=== PATIENT | male | born 1985 | race African-American/Black ===

== ENCOUNTER → 2024-10-14 | Day surgery (SDC) | payer MEDICAID ==
[2024-10-13 10:10] LABS: Basophils # (auto) 0 10 ^3/uL (0-0.2); Basophils % (auto) 0.9 % (0.0-2.0); Eosinophils # (auto) 0.3 10 ^3/uL (0-0.8); Eosinophils % (auto) 7.4 % (0.0-7.0); Hematocrit 44.3 % (41.0-53.0); Lymphocytes # (auto) 0.9 10 ^3/uL (0.4-5.4); Lymphocytes % (auto) 26.6 % (10.0-50.0); Mean Corpuscular Hemoglobin 24.3 pg (28.0-32.0); Mean Corpuscular Hgb Conc. 31.6 g/dL (32.0-36.0); Mean Corpuscular Volume 76.7 fL (80.0-100.0); Monocytes # (auto) 0.5 10 ^3/uL (0-1.3); Monocytes % (auto) 15.3 % (0.0-12.0); Neutrophils # (auto) 1.7 10 ^3/uL (1.6-8.6); Neutrophils % (auto) 49.8 % (37.0-80.0); Nucleated Red Blood Cells % 0.4 %; Platelet Count (auto) 317 10^3/uL (140-450); Red Blood Cells 5.78 10^6/uL (4.5-5.90); Red Cell Distribution Width 15.5 % (11.8-14.3); White Blood Cell 3.4 10^3/uL (4.4-10.8)
[2024-10-13 10:12] LABS: Alkaline Phosphatase 65 U/L (46-116); Anion Gap 8 (5-15); Aspartate Aminotransferase 32 U/L (13-40); BUN/Creatinine Ratio 11.1 (10.0-20.0); Bilirubin, Total 0.5 mg/dL (0.2-1.0); Blood Urea Nitrogen 14 mg/dL (9-23); Calcium 10.3 mg/dL (8.7-10.4); Carbon Dioxide 30 mmol/L (20-31); Chloride 102 mmol/L (98-107); Potassium 4.2 mmol/L (3.5-5.1); Sodium 140 mmol/L (136-145)
[2024-10-13 10:13] LABS: Alanine Aminotransferase 47 U/L (7-40); Glucose 123 mg/dL (74-106); Total Protein 8.6 g/dL (5.7-8.2)
[2024-10-13 10:18] LABS: INR 1.02 (0.9-1.15); Partial Thromboplastin Time 27.3 SEC (24.5-34.5); Prothrombin Time 10.8 sec (9.3-11.8)
[~2024-10-14] VITALS: Ht 185.4 cm; Wt 108.9 kg
[~2024-10-14] MED LIST: ALBUAER3 IN; ASCO500T11 PO; FER325T PO; MIDAZOLAM HCL 2MG/2ML 2ml VIAL (1mg/ml) ONE
[2024-10-14] MEDS: fentaNYL CITRATE 100 MCG/2 ML VL ONE (12:42)
[2024-10-14] MEDS: MIDAZOLAM HCL 2MG/2ML 2ml VIAL (1mg/ml) ONE (12:42)
[2024-10-14] MEDS: MIDAZOLAM HCL 2MG/2ML 2ml VIAL (1mg/ml) IV ONE (12:53)
--- NOTE | 2024-10-14 13:05 | DVHNC2 ---
Procedure - PROCEDURE DATE: OCTOBER 14, 2024 PROCEDURE PERFORMED BY: Shahid Jesus MD REFERRING PROVIDER: Dr Becerril PROCEDURE PERFORMED: 1. ESOPHAGOGASTRODUODENOSCOPY WITH MODERATE SEDATION 2. ESOPHAGOGASTRODUODENOSCOPY WITH BIOPSY 3. COLONOSCOPY WITH MODERATE SEDATION 4. COLONOSCOPY WITH COLD BIOPSY POLYPECTOMY PRE-PROCEDURE DIAGNOSIS: 1. IRON-DEFICIENCY ANEMIA POSTPROCEDURE DIAGNOSIS: 1. NORMAL DUODENUM BIOPSIES TAKEN WITH COLD BIOPSY FORCEPS 2. MILD GASTRITIS, BIOPSIES TAKEN OF THE BODY AND ANTRUM 3. 2 CM HIATAL HERNIA 4. MILD EROSIVE ESOPHAGITIS LA GRADE A 5. SMALL INTERNAL AND EXTERNAL HEMORRHOIDS INDICATIONS FOR PROCEDURE: The patient is a 38-year-old male presents for outpatient endoscopy and colonoscopy for iron-deficiency anemia MEDICATIONS USED: 8mg of Versed IV and 100mcg of fentanyl IV were given in incremental doses DETAILS OF THE PROCEDURE: Informed consent was obtained after risks, benefits, and alternatives, were discussed at length with the patient. The patient gave consent to the procedure as well as some medication used for sedation. The patient was placed in the left lateral decubitus position. Endoscope was inserted into the oropharynx appearance into the esophagus, then into the stomach, then into the duodenal bulb and duodenum. The duodenal bulb and duodenum were normal. Biopsies were taken given iron-deficiency anemia. The scope was withdrawn. The stomach showed mild gastritis of the antrum biopsies were taken of the antrum and body. Retroflexion showed a small hernia. The scope was then withdrawn. The Z-line was at 40 cm patient had mild erosive esophagitis. The patient tolerated the procedure well. The patient remained in the left lateral decubitus position and a digital rectal exam was performed. The digital rectal exam showed internal hemorrhoids and external hemorrhoids. An Olympus variable torsion pediatric colonoscope was inserted into the rectum and independence to the cecum. The cecum was identified by the ileocecal valve appendiceal orifice. The scope was then withdrawn. Fleming bowel prep score of 5 was noted. There were no large polyps, masses, strictures, or arteriovenous malformations seen. More than 6 minutes withdrawal time was noted. Retroflexion showed internal hemorrhoids. The patient tolerated the procedure well. START TIME: 1253 CECUM TIME: 1254 END TIME: 1301 IMPRESSION: 1. Internal and external hemorrhoids 2. Mild erosive esophagitis and mild erosive gastritis 3. Fair colon preparation Anemia likely secondary to erosive esophagitis. Consider possible bleeding from hemorrhoids versus other GI versus non GI sources RECOMMENDATION: 1. Anti-reflux precautions 2. Proton pump inhibitor daily 30 minutes before breakfast 3. follow up in GI clinic for procedure and pathology results 4. Medical management of hemorrhoids as indicated, consider surgical referral if the patient has significant bleeding 5. High-fiber diet 6. Consider further workup with small-bowel follow-through and/or capsule endoscopy 7. Consider a repeat colonoscopy only as indicated given the fair preparation 8. CONSIDER HEME REFERRAL 9. Continue with iron supplementation I WOULD LIKE TO THANK DR BECERRIL FOR THIS REFERRAL SHAHID JESUS MD October 14, 2024 13:05
[2024-10-14 13:06] VITALS: PULSE 83; RESP 17; TEMP 99.1; O2SAT 95
[2024-10-14 13:36] VITALS: BP 130/69; PULSE 92; RESP 16; O2SAT 96
== END | disposition home or self-care (01) ==
LOC: GI 09:58
PROVIDERS: ATTEND Specialist
DX: D50.9 Iron deficiency anemia, unspecified (principal); K64.8 Other hemorrhoids; K64.4 Residual hemorrhoidal skin tags; K21.00 Gastro-esophageal reflux disease with esophagitis, without bleeding; K29.50 Unspecified chronic gastritis without bleeding; B96.81 Helicobacter pylori [H. pylori] as the cause of diseases classified elsewhere; K44.9 Diaphragmatic hernia without obstruction or gangrene; J45.909 Unspecified asthma, uncomplicated; Z79.899 Other long term (current) drug therapy; Z86.2 Personal history of diseases of the blood and blood-forming organs and certain disorders involving the immune mechanism; Z98.890 Other specified postprocedural states
CPT/HCPCS: 36415; 43239; 45378; 80053; 85025; 85610; 85730; 88305; 88342; J2250; J3010; 45380; 99152